=== PATIENT | female | born 1945 | race Hispanic/Latino ===

== ENCOUNTER 2017-07-04 11:21 | Inpatient (IN) | payer BC, MEDICARE ==
[2017-07-04] MEDS ORDERED: Sodium Chloride 0.9% 1,000 ML IV STA ×2 (12:43→15:25)
--- NOTE | 2017-07-04 12:54 | ED PDOC ---
HPI: Abdomen Time Seen by Provider: 07/04/17 12:18 Chief Complaint (Nursing): Abdominal Pain Chief Complaint (Provider): Rectal Bleeding History Per: Patient History/Exam Limitations: no limitations Onset/Duration Of Symptoms: Days (x2) Additional Complaint(s): 71 year old female with a past medical history of anemia and hypertension presents to the emergency department complaining of rectal bleeding since yesterday. Reports defecation with lower abdominal cramping. Also reports feeling weak, dizzy, and nauseous. Denies any fever or vomiting. PMD: To be determined Past Medical History Reviewed: Historical Data, Nursing Documentation, Vital Signs Vital Signs: Last Vital Signs Temp 98.5 F 07/04/17 11:43 Pulse 75 07/04/17 11:43 Resp 18 07/04/17 11:43 BP 144/80 07/04/17 11:43 Pulse Ox 99 07/04/17 13:19 - Medical History PMH: Anemia, HTN - Surgical History Other surgeries: Bilateral knee and right hip replacement, gastric bypass surgery - Family History Family History: States: Unknown Family Hx - Social History Current smoker - smoking cessation education provided: No Alcohol: Social Drugs: Denies - Immunization History Hx Influenza Vaccination: No - Home Medications Home Medications: Ambulatory Orders Medication Instructions Recorded Azithromycin [Zithromax Z-Jay] 250 mg PO DAILY #5 tab 07/22/14 - Allergies Allergies/Adverse Reactions: Allergies Allergy/AdvReac Type Severity Reaction Status Date / Time Unobtainable Allergy Verified 07/04/17 12:42 Review of Systems ROS Statement: Except As Marked, All Systems Reviewed And Found Negative Constitutional: Negative for: Fever Gastrointestinal: Positive for: Nausea, Abdominal Pain (low cramping), Rectal Pain (Bleeding). Negative for: Vomiting Neurological: Positive for: Weakness, Dizziness Physical Exam - Reviewed Nursing Documentation Reviewed: Yes Vital Signs Reviewed: Yes - Physical Exam Appears: Positive for: No Acute Distress Head Exam: Positive for: ATRAUMATIC, NORMAL INSPECTION, NORMOCEPHALIC Skin: Positive for: Normal Color, Warm, Dry Eye Exam: Positive for: EOMI, PERRL, Other (pale conjunctiva) ENT: Positive for: Normal ENT Inspection Neck: Positive for: Normal, Painless ROM Cardiovascular/Chest: Positive for: Regular Rate, Rhythm. Negative for: Murmur Respiratory: Positive for: Normal Breath Sounds. Negative for: Accessory Muscle Use, Wheezing, Respiratory Distress Gastrointestinal/Abdominal: Positive for: Normal Exam, Bowel Sounds, Soft. Negative for: Tenderness, Distended Back: Positive for: Normal Inspection Extremity: Positive for: Normal ROM. Negative for: Tenderness, Swelling Neurologic/Psych: Positive for: Alert, Oriented (x3). Negative for: Motor/ Sensory Deficits - Laboratory Results Result Diagrams: 07/04/17 13:15 07/04/17 13:15 - ECG O2 Sat by Pulse Oximetry: 99 (RA) Pulse Ox Interpretation: Normal Medical Decision Making Medical Decision Making: Time: 12:42 Initial Plan: --Type and Screen --CT of the Abdomen and Pelvis without PO or IV Contrast --CMP --ED Urine Dipstick --CBC with Differential --Sodium Chloride 0.9% 1000 mL IV 150 mls/hr --Occult Blood, Stool, ER Scribe Attestation: Documented by Indira House, acting as a scribe for Hero Alejandre MD Provider Scribe Attestation: All medical record entries made by the Scribe were at my direction and personally dictated by me. I have reviewed the chart and agree that the record accurately reflects my personal performance of the history, physical exam, medical decision making, and the department course for this patient. I have also personally directed, reviewed, and agree with the discharge instructions and disposition Disposition - Clinical Impression Clinical Impression: GI bleed - Patient ED Disposition Is Patient to be Admitted: Yes - Disposition Disposition Time: 14:54 Condition: FAIR Forms: [employer] (Persian) - Pt Status Changed To: Hospital Disposition Of: Observation - POA Present On Arrival: None
[2017-07-04 13:19] LABS: BASO % 0.4 % (0.0-2.0); EOS # 0.1 K/uL (0.0-0.7); HEMOGLOBIN 12.6 g/dL (12.0-16.0); LYMPH # 1.3 K/uL (1.0-4.3); LYMPH % 17.3 % (20.0-40.0); MEAN CELL VOLUME 101.6 fl (81.0-99.0); MEAN CORPUSCULAR HEMOGLOBIN 33.8 pg (27.0-31.0); MEAN CORPUSCULAR HGB CONC 33.2 g/dL (33.0-37.0); MEAN PLATELET VOLUME 8.6 fl (7.2-11.7); MONO # 0.4 K/uL (0.0-0.8); MONO % 5.5 % (0.0-10.0); NEUT # 5.6 K/uL (1.8-7.0); NEUT % 75.8 % (50.0-75.0); NRBC % 0.2 % (0.0-0.0); RBC 3.74 Mil/uL (3.80-5.20); RED CELL DISTRIBUTION WIDTH 14.4 % (11.5-14.5); WHITE BLOOD COUNT 7.4 K/uL (4.8-10.8)
[2017-07-04 13:50] LABS: ALB/GLOB RATIO 1.3 (1.0-2.1); ALBUMIN 3.8 g/dL (3.5-5.0); ALT/SGPT 18 U/L (9-52); AST/SGOT 43 U/L (14-36); BLOOD UREA NITROGEN 53 mg/dl (7-17); CALCIUM 9.3 mg/dL (8.4-10.2); GFR AFRICAN-AMERICAN > 60; GFR NON-AFRICAN AMERICAN > 60
--- NOTE | 2017-07-04 16:34 | CT ---
PROCEDURE: CT scan abdomen and pelvis dated 07/04/2017 HISTORY: Rectal bleeding. COMPARISON: No prior study available comparison. TECHNIQUE: Contiguous helical/transaxial images of the abdomen and pelvis. Oral contrast was administered. No IV contrast given. Coronal and Sagittal reformats generated. Radiation dose: Total exam DLP = This CT exam was performed using one or more of the following dose reduction techniques: Automated exposure control, adjustment of the mA and/or kV according to patient size, and/or use of iterative reconstruction technique. FINDINGS: LOWER THORAX: There appears to be some minor atelectasis or scarring in the middle lobe and lingular regions. . Lung edwards are otherwise clear. No evidence of effusion or basilar pneumothorax There is a moderate size hiatal hernia with wall thickening of the distal esophagus that is likely due to protrusion of gastric mucosa. Esophagitis or other intrinsic/invasive wall lesion not excluded. LIVER: The liver is upper limits of normal/ borderline enlarged measuring just over 18 cm in CC dimension. No obvious hepatic mass collection or calcification seen on this noncontrast study. GALLBLADDER AND BILE DUCTS: Gallbladder is physiologically distended. . Layering calculi seen within the dependent portion of the gallbladder. PANCREAS: The unenhanced pancreas appears atrophic and fatty replaced. . No obvious pancreatic masses or collections. SPLEEN: Spleen exhibits relatively normal size. There is a faint ill-defined area low attenuation superior anterior margin of the splenic parenchyma measuring 5.4 mm of uncertain etiology. This could represent a tiny hemangioma. Followup interval could be performed to assess stability. ADRENALS: There are no adrenal lesions. KIDNEYS AND URETERS: Kidneys demonstrate relatively symmetric size. No evidence of nephrolithiasis or hydronephrosis. There is a small partially exophytic 7.2 mm hyperdense focus exhibiting Hounsfield units in the high 50s) arising from the medial aspect upper/ midpole left kidney that could represent a hyperdense cyst however solid lesion not excluded. Consider follow-up ultrasound for further evaluation as initial on workup BLADDER: Urinary bladder is incompletely seen due to significant streak and beam hardening artifact arising from right total hip replacement. Urinary bladder does appear distended so far as can be determined. REPRODUCTIVE: Streak and beam hardening artifact arising from right total hip replacement also obscures a good portion of the remaining pelvis including the reproductive structures. Uterus is not seen with any certainty. Follow-up pelvic ultrasound is recommended to identified the uterus an adnexal structures APPENDIX: What appears to represent a normal appendix of best seen on coronal image number [id number].. BOWEL: Evaluation of the bowel is limited due to the lack of oral contrast material. Postoperative changes of the stomach ; clinical correlation with surgical history recommended. . Visualized loops of small bowel exhibit relatively normal contour and caliber however there fecalization small bowel content. . Additionally, relatively large amount of stool seen throughout the ascending and proximal transverse colon. Large amount of air is present within the rectum. There are multiple calcifications seen adjacent to the right posterolateral wall of the rectus sigmoid with adjacent right-sided ill-defined soft tissue density also associated with at least 1 calcification. Soft tissue density is of uncertain etiology however could represent unopacified loops of bowel and uterus as the uterus is not clearly identified on this exam. The possibility of a lesion involving the wall of the rectosigmoid colon extending laterally cannot be excluded clinical correlation recommended. Endoscopy followup recommended. Pelvic ultrasound is also recommended to identified the uterus and adnexal structures PERITONEUM: No obvious free or loculated fluid collections. No free intraperitoneal air. There is a small fat containing umbilical hernia. LYMPH NODES: No significant lymphadenopathy so far as can be seen. VASCULATURE: No evidence of abdominal aortic aneurysm. Partially calcified atherosclerotic plaque seen along the abdominal aorta and iliac arteries. BONES: Multilevel degenerative spondylosis of the lower thoracic and lumbar spine. OTHER FINDINGS: None. IMPRESSION: Cholelithiasis. Findings consistent with constipation with fecalized content in the small bowel. There are multiple calcifications seen adjacent to the right posterolateral wall of the rectus sigmoid with adjacent right-sided ill-defined soft tissue density also associated with at least 1 calcification. Soft tissue density is of uncertain etiology however could represent unopacified loops of bowel and uterus as the uterus is not clearly identified on this exam. The possibility of a lesion involving the wall of the rectosigmoid colon extending laterally cannot be excluded clinical correlation recommended. Endoscopy followup recommended. Pelvic ultrasound is also recommended to identified the uterus and adnexal structures Note these findings discussed with Dr. Lebron at approximately 3:25 p.m. with written down and read back verification.
--- NOTE | 2017-07-04 18:09 | CP.PCM.HP ---
<Lisa Francois - Last Filed: 07/04/17 19:37> History of Present Illness - History of Present Illness History of Present Illness: 71 YO F/ w/ PMH history HTN and anemia of an unknown etiology presents to the ED after she had 4 eppisodes of Black stool, with bright red blood in her toilet. At that time she started feeling weak, SOB, and light headed. Patients episodes of bloody stools occured between the hours of 5:30 am and 8:30 am. They were normal in consistency. States she usually has normal soft bowl movements daily, and has never had any problems. Back in 2016 patient was admitted at [place] with a Hb of 5.7 and received Iron transfusions but no blood transfusions. She has been taking supplemental iron on a daily basis over the last 6 months. Patient had a colonoscopy and endoscopy in september 2015 and there was nothing abnormal found according to her. - Patient admits to not drinking very much water, usually has 3 cups of coffee. Denies any abdominal pain or any history of GERD. No unintentional weight loss, fever, chills, nausea or vomiting. PMD: Dr. Hodgson PMH: HTN, Anemia: etiology unknown, Lactose intolerance PSH: Gastric Bypass (Fall 2002), B/L Knee replacement ( September 2010), Right hip replacement Dec 2014, Right hip revision October 2015 FH: Father of colon cancer at 63 Medications: Enalopril, Turmeric, chromium, Aleve Allergy: IV contrast(CT Scan) SH: Alcohol 3 times per week (1- 2 glasses) , No smoking or illicit drug use Present on Admission - Present on Admission Any Indicators Present on Admission: No Review of Systems - Review of Systems All systems: reviewed and no additional remarkable complaints except Past Patient History - Past Social History Alcohol: Social Drugs: Denies - CARDIAC Hx Hypertension: Yes - HEMATOLOGICAL/ONCOLOGICAL Hx Anemia: Yes - PSYCHIATRIC Hx Substance Use: No - SURGICAL HISTORY Other/Comment: bilateral knee replacementright hip replacement - ANESTHESIA Hx Anesthesia: Yes Hx Anesthesia Reactions: No Hx Malignant Hyperthermia: No Meds Allergies/Adverse Reactions: Allergies Allergy/AdvReac Type Severity Reaction Status Date / Time IV contrast Allergy RASH Uncoded 07/04/17 15:29 Physical Exam - Constitutional Appears: No Acute Distress - Head Exam Head Exam: NORMAL INSPECTION - ENT Exam ENT Exam: Mucous Membranes Moist - Neck Exam Neck exam: Positive for: Normal Inspection - Respiratory Exam Respiratory Exam: Clear to Auscultation Bilateral, NORMAL BREATHING PATTERN. absent: Rhonchi, Wheezes - Cardiovascular Exam Cardiovascular Exam: REGULAR RHYTHM, +S1, +S2 - GI/Abdominal Exam GI & Abdominal Exam: Normal Bowel Sounds, Soft. absent: Tenderness - Rectal Exam Rectal Exam: Black Stool, Bloody Stool Additional comments: FOBT positive - Extremities Exam Extremities exam: Negative for: calf tenderness - Neurological Exam Neurological exam: Alert, CN II-XII Intact, Oriented x3 - Skin Skin Exam: Normal Color, Warm Results - Vital Signs Recent Vital Signs: Last Vital Signs Temp 98.5 F 07/04/17 11:43 Pulse 75 07/04/17 11:43 Resp 18 07/04/17 11:43 BP 144/80 07/04/17 11:43 Pulse Ox 99 07/04/17 14:54 - Labs Result Diagrams: 07/04/17 13:15 07/04/17 16:25 Labs: Laboratory Results - last 24 hr 07/04/17 07/04/17 07/04/17 13:15 13:15 16:25 WBC 7.4 RBC 3.74 L Hgb 12.6 Hct 38.0 MCV 101.6 H MCH 33.8 H MCHC 33.2 RDW 14.4 Plt Count 174 MPV 8.6 Neut % (Auto) 75.8 H Lymph % (Auto) 17.3 L Gray % (Auto) 5.5 Eos % (Auto) 1.0 Baso % (Auto) 0.4 Neut # (Auto) 5.6 Lymph # (Auto) 1.3 Gray # (Auto) 0.4 Eos # (Auto) 0.1 Baso # (Auto) 0.0 Sodium 140 Potassium 6.0 H 5.1 H Chloride 106 Carbon Dioxide 22 Anion Gap 18 BUN 53 H Creatinine 0.9 Est GFR ( Amer) > 60 Est GFR (Non-Af Amer) > 60 Random Glucose 97 Calcium 9.3 Total Bilirubin 1.1 AST 43 H ALT 18 Alkaline Phosphatase 51 Total Protein 6.6 Albumin 3.8 Globulin 2.8 Albumin/Globulin Ratio 1.3 Stool Occult Blood 07/04/17 16:45 WBC RBC Hgb Hct MCV MCH MCHC RDW Plt Count MPV Neut % (Auto) Lymph % (Auto) Gray % (Auto) Eos % (Auto) Baso % (Auto) Neut # (Auto) Lymph # (Auto) Gray # (Auto) Eos # (Auto) Baso # (Auto) Sodium Potassium Chloride Carbon Dioxide Anion Gap BUN Creatinine Est GFR ( Amer) Est GFR (Non-Af Amer) Random Glucose Calcium Total Bilirubin AST ALT Alkaline Phosphatase Total Protein Albumin Globulin Albumin/Globulin Ratio Stool Occult Blood Positive H Assessment & Plan - Assessment and Plan (Free Text) Assessment: 71 YO F w/ 4 episodes of bloody bowl movement is admitted for lightheadedness, weakness. 1) Blood in stools - NPO - Stool occult blood positive - Hemodynamically stable: Hb: 12.6 - Type and screen - GI and surgery consulted - F/U with CBC, CMP, PT/INR, Type and screen - CT abdomen showed: Cholelithiasis. Constipation noted, fecalized content in the small bowl. Multiple calcifications seen adjacent to right poserolateral wall of the rectus sigmoid with adjacent right sided ill defined soft tissue associated with calcification. Possibly lesion involving wall of rectosigmoid colon extending laterally cannot be excluded. Recommending Endoscopy and pelvic ultrasound - Monitor vitals 2) Lightheadedness - possibly secondary to dehydration - lightheadedness improved after bolus of IV fluids - BUN/Creatinine : 53/.9 3) Hyperkalemia - K+ of 5.1 - Hold enalapril home medication as of now. - Continue to monitor 4)DVT prophylaxis - Hold anticoagulation, because of bleeding - SCD <Alena Rome - Last Filed: 07/05/17 08:52> Results - Vital Signs Recent Vital Signs: Last Vital Signs Temp 98.6 F 07/05/17 07:24 Pulse 60 07/05/17 07:24 Resp 17 07/05/17 07:24 BP 142/96 H 07/05/17 07:24 Pulse Ox 99 07/05/17 07:24 - Labs Result Diagrams: 07/05/17 05:50 07/04/17 20:12 Labs: Laboratory Results - last 24 hr 07/04/17 07/04/17 07/04/17 13:15 13:15 16:25 WBC 7.4 RBC 3.74 L Hgb 12.6 Hct 38.0 MCV 101.6 H MCH 33.8 H MCHC 33.2 RDW 14.4 Plt Count 174 MPV 8.6 Neut % (Auto) 75.8 H Lymph % (Auto) 17.3 L Gray % (Auto) 5.5 Eos % (Auto) 1.0 Baso % (Auto) 0.4 Neut # (Auto) 5.6 Lymph # (Auto) 1.3 Gray # (Auto) 0.4 Eos # (Auto) 0.1 Baso # (Auto) 0.0 PT INR APTT Sodium 140 Potassium 6.0 H 5.1 H Chloride 106 Carbon Dioxide 22 Anion Gap 18 BUN 53 H Creatinine 0.9 Est GFR ( Amer) > 60 Est GFR (Non-Af Amer) > 60 Random Glucose 97 Calcium 9.3 Total Bilirubin 1.1 AST 43 H ALT 18 Alkaline Phosphatase 51 Total Protein 6.6 Albumin 3.8 Globulin 2.8 Albumin/Globulin Ratio 1.3 Stool Occult Blood Blood Type Blood Type Confirm Antibody Screen BBK History Checked 07/04/17 07/04/17 07/04/17 16:45 20:00 20:12 WBC 6.3 RBC 3.11 L Hgb 10.3 L D Hct 31.2 L MCV 100.4 H MCH 33.2 H MCHC 33.1 RDW 13.5 Plt Count 159 MPV 8.4 Neut % (Auto) 53.9 Lymph % (Auto) 34.0 Gray % (Auto) 8.9 Eos % (Auto) 2.6 Baso % (Auto) 0.6 Neut # (Auto) 3.4 Lymph # (Auto) 2.1 Gray # (Auto) 0.6 Eos # (Auto) 0.2 Baso # (Auto) 0.0 PT INR APTT Sodium Potassium Chloride Carbon Dioxide Anion Gap BUN Creatinine Est GFR ( Amer) Est GFR (Non-Af Amer) Random Glucose Calcium Total Bilirubin AST ALT Alkaline Phosphatase Total Protein Albumin Globulin Albumin/Globulin Ratio Stool Occult Blood Positive H Blood Type A POSITIVE Blood Type Confirm Antibody Screen Negative BBK History Checked No verified bt 07/04/17 07/04/17 07/04/17 20:12 20:15 20:20 WBC RBC Hgb Hct MCV MCH MCHC RDW Plt Count MPV Neut % (Auto) Lymph % (Auto) Gray % (Auto) Eos % (Auto) Baso % (Auto) Neut # (Auto) Lymph # (Auto) Gray # (Auto) Eos # (Auto) Baso # (Auto) PT 11.0 INR 1.0 APTT 28.2 Sodium 142 Potassium 4.7 Chloride 107 Carbon Dioxide 29 Anion Gap 11 BUN 42 H Creatinine 0.9 Est GFR ( Amer) > 60 Est GFR (Non-Af Amer) > 60 Random Glucose 89 Calcium 8.9 Total Bilirubin 0.5 AST 26 ALT 28 Alkaline Phosphatase 49 Total Protein 5.4 L Albumin 3.1 L Globulin 2.3 Albumin/Globulin Ratio 1.3 Stool Occult Blood Blood Type Blood Type Confirm A POSITIVE Antibody Screen BBK History Checked 07/05/17 05:50 WBC 4.9 RBC 3.27 L Hgb 11.0 L Hct 33.3 L MCV 101.8 H MCH 33.6 H MCHC 33.0 RDW 13.8 Plt Count 164 MPV Neut % (Auto) Lymph % (Auto) Gray % (Auto) Eos % (Auto) Baso % (Auto) Neut # (Auto) Lymph # (Auto) Gray # (Auto) Eos # (Auto) Baso # (Auto) PT INR APTT Sodium Potassium Chloride Carbon Dioxide Anion Gap BUN Creatinine Est GFR ( Amer) Est GFR (Non-Af Amer) Random Glucose Calcium Total Bilirubin AST ALT Alkaline Phosphatase Total Protein Albumin Globulin Albumin/Globulin Ratio Stool Occult Blood Blood Type Blood Type Confirm Antibody Screen BBK History Checked Attending/Attestation - Attestation I have personally seen and examined this patient.: Yes I have fully participated in the care of the patient.: Yes I have reviewed all pertinent clinical information: Yes Notes (Text): 07/05/17 08:50 ATTENDING NOTE ATTESTATION CHART REVIEWED. CASE DISCUSSED AT LENGTH WITH RESIDENT. ADMITTED FOR FURTHER EVALUATION AND TREATMENT. DARK STOOL - PATIENT IS ON IRON. STOOL FOR OCCULT BLOOD POSITIVE FOR BLOOD. ELEVALTED BUN/CR RATION MAY INDICATE GI BLEED RATHER THAN DEHYDRATION OR A COMPONENT OF BOTH. VITAL SIGNS STABLE UPON ADMISSION. AGREE WITH PLAN,\.
--- NOTE | 2017-07-04 18:57 | CP.PCM.CON ---
<Chris Muller - Last Filed: 07/05/17 08:14> History of Present Illness - History of Present Illness History of Present Illness: General Surgery Consult Note for Dr. Fountain Reason for consult: blood in stool 71 F with PMH that includes HTN, Palma-en-y gastric bypass and anemia presents to [facility] for complaint of blood per rectum. Patient states that she had 4 episodes of black tarry stool with bright red blood in her toilet, all very loose. She states that they all occurred before 9 am. At that time, she reports weakness and dizziness/lightheadedness. Patient denies any pain. She reports that she normally has regular bowel movements daily. Denies ever having blood or dark stool. Patient had admission last year at [place] for anemia. She has been taking iron supplement. She had a normal EGD/colonoscopy in September 2015. Patient has no complaints at this time and is feeling better than earlier. Denies fever/chills, chest pain, SOb, palpitations, abdominal pain, nausea/vomiting, urinary symptoms, incontinence, syncope, vertigo. PMD: Dr. Hodgson PMH: HTN, Anemia, Lactose intolerance Meds: As per EMR Allergy: IV contrast PSH: Pamla-en-y Gastric Bypass (2002), B/L Knee replacement (2010), Right hip replacement (2014), Right hip revision (2015) FH: multiple relatives with colon cancer on paternal side Social: Admits to EtOH three times per week (1-2 glasses), Denies tobacco/ illicit drug use Review of Systems - Review of Systems All systems: reviewed and no additional remarkable complaints except (as per HPI ) Past Patient History - Past Social History Alcohol: Social Drugs: Denies - CARDIAC Hx Hypertension: Yes - HEMATOLOGICAL/ONCOLOGICAL Hx Anemia: Yes - PSYCHIATRIC Hx Substance Use: No - SURGICAL HISTORY Other/Comment: bilateral knee replacementright hip replacement - ANESTHESIA Hx Anesthesia: Yes Hx Anesthesia Reactions: No Hx Malignant Hyperthermia: No Meds Allergies/Adverse Reactions: Allergies Allergy/AdvReac Type Severity Reaction Status Date / Time IV contrast Allergy RASH Uncoded 07/04/17 15:29 - Medications Medications: Current Medications Sodium Chloride (Sodium Chloride 0.9%) 1,000 mls @ 150 mls/hr IV .Q6H40M STA Stop: 07/04/17 19:22 Last Admin: 07/04/17 14:20 Dose: 150 mls/hr Physical Exam - Constitutional Appears: No Acute Distress - Head Exam Head Exam: ATRAUMATIC, NORMOCEPHALIC - Eye Exam Eye Exam: EOMI, Normal appearance - ENT Exam ENT Exam: Mucous Membranes Moist - Respiratory Exam Respiratory Exam: NORMAL BREATHING PATTERN - Cardiovascular Exam Cardiovascular Exam: REGULAR RHYTHM - GI/Abdominal Exam GI & Abdominal Exam: Normal Bowel Sounds, Soft. absent: Distended, Firm, Guarding, Hernia, Rebound, Rigid, Tenderness - Rectal Exam Additional comments: normal sphincter tone, smooths emerson, no structural irregularities noted, Dark stool noted - Extremities Exam Extremities exam: Positive for: normal capillary refill, pedal edema (bilateral) , pedal pulses present. Negative for: calf tenderness - Back Exam Back exam: absent: CVA tenderness (L), CVA tenderness (R) - Neurological Exam Neurological exam: Alert, CN II-XII Intact, Oriented x3 - Psychiatric Exam Psychiatric exam: Normal Affect, Normal Mood - Skin Skin Exam: Dry, Intact, Normal Color, Warm Results - Vital Signs Recent Vital Signs: Last Vital Signs Temp 98.5 F 07/04/17 11:43 Pulse 75 07/04/17 11:43 Resp 18 07/04/17 11:43 BP 144/80 07/04/17 11:43 Pulse Ox 99 07/04/17 14:54 - Labs Result Diagrams: 07/04/17 20:12 07/04/17 20:12 Labs: Laboratory Results - last 24 hr 07/04/17 07/04/17 07/04/17 13:15 13:15 16:25 WBC 7.4 RBC 3.74 L Hgb 12.6 Hct 38.0 MCV 101.6 H MCH 33.8 H MCHC 33.2 RDW 14.4 Plt Count 174 MPV 8.6 Neut % (Auto) 75.8 H Lymph % (Auto) 17.3 L [place] % (Auto) 5.5 Eos % (Auto) 1.0 Baso % (Auto) 0.4 Neut # (Auto) 5.6 Lymph # (Auto) 1.3 Worth # (Auto) 0.4 Eos # (Auto) 0.1 Baso # (Auto) 0.0 Sodium 140 Potassium 6.0 H 5.1 H Chloride 106 Carbon Dioxide 22 Anion Gap 18 BUN 53 H Creatinine 0.9 Est GFR ( Amer) > 60 Est GFR (Non-Af Amer) > 60 Random Glucose 97 Calcium 9.3 Total Bilirubin 1.1 AST 43 H ALT 18 Alkaline Phosphatase 51 Total Protein 6.6 Albumin 3.8 Globulin 2.8 Albumin/Globulin Ratio 1.3 Stool Occult Blood 07/04/17 16:45 WBC RBC Hgb Hct MCV MCH MCHC RDW Plt Count MPV Neut % (Auto) Lymph % (Auto) [place] % (Auto) Eos % (Auto) Baso % (Auto) Neut # (Auto) Lymph # (Auto) [place] # (Auto) Eos # (Auto) Baso # (Auto) Sodium Potassium Chloride Carbon Dioxide Anion Gap BUN Creatinine Est GFR ( Amer) Est GFR (Non-Af Amer) Random Glucose Calcium Total Bilirubin AST ALT Alkaline Phosphatase Total Protein Albumin Globulin Albumin/Globulin Ratio Stool Occult Blood Positive H Assessment & Plan - Assessment and Plan (Free Text) Plan: 71 F with GI bleed -Monitor Hgb, Transfuse as needed -IV fluids -Recommend GI consult -Medical management as per primary -Further recommendations as per Dr. Александр Muller PGY1 <Melvin Fountain - Last Filed: 07/05/17 10:45> Meds - Medications Medications: Current Medications Enalapril Maleate (Vasotec) 5 mg PO DAILY [facility] Last Admin: 07/05/17 08:47 Dose: 5 mg Hydromorphone HCl (Dilaudid) 0.5 mg IVP Q3H PRN PRN Reason: Pain, severe (8-10) Dextrose/Sodium Chloride (Dextrose 5%/0.45% Ns 1000 Ml) 1,000 mls @ 125 mls/hr IV .Q8H [facility] Stop: 07/06/17 00:01 Last Admin: 07/05/17 08:58 Dose: 125 mls/hr Pantoprazole Sodium (Protonix Inj) 40 mg IVP BID [facility] Last Admin: 07/05/17 08:47 Dose: 40 mg Results - Vital Signs Recent Vital Signs: Last Vital Signs Temp 98.6 F 07/05/17 07:24 Pulse 60 07/05/17 07:24 Resp 17 07/05/17 07:24 BP 142/96 H 07/05/17 07:24 Pulse Ox 99 07/05/17 07:24 - Labs Result Diagrams: 07/05/17 05:50 07/04/17 20:12 Labs: Laboratory Results - last 24 hr 07/04/17 07/04/17 07/04/17 13:15 13:15 16:25 WBC 7.4 RBC 3.74 L Hgb 12.6 Hct 38.0 MCV 101.6 H MCH 33.8 H MCHC 33.2 RDW 14.4 Plt Count 174 MPV 8.6 Neut % (Auto) 75.8 H Lymph % (Auto) 17.3 L [place] % (Auto) 5.5 Eos % (Auto) 1.0 Baso % (Auto) 0.4 Neut # (Auto) 5.6 Lymph # (Auto) 1.3 [place] # (Auto) 0.4 Eos # (Auto) 0.1 Baso # (Auto) 0.0 PT INR APTT Sodium 140 Potassium 6.0 H 5.1 H Chloride 106 Carbon Dioxide 22 Anion Gap 18 BUN 53 H Creatinine 0.9 Est GFR ( Amer) > 60 Est GFR (Non-Af Amer) > 60 Random Glucose 97 Calcium 9.3 Total Bilirubin 1.1 AST 43 H ALT 18 Alkaline Phosphatase 51 Total Protein 6.6 Albumin 3.8 Globulin 2.8 Albumin/Globulin Ratio 1.3 Stool Occult Blood Blood Type Blood Type Confirm Antibody Screen BBK History Checked 07/04/17 07/04/17 07/04/17 16:45 20:00 20:12 WBC 6.3 RBC 3.11 L Hgb 10.3 L D Hct 31.2 L MCV 100.4 H MCH 33.2 H MCHC 33.1 RDW 13.5 Plt Count 159 MPV 8.4 Neut % (Auto) 53.9 Lymph % (Auto) 34.0 Worth % (Auto) 8.9 Eos % (Auto) 2.6 Baso % (Auto) 0.6 Neut # (Auto) 3.4 Lymph # (Auto) 2.1 Worth # (Auto) 0.6 Eos # (Auto) 0.2 Baso # (Auto) 0.0 PT INR APTT Sodium Potassium Chloride Carbon Dioxide Anion Gap BUN Creatinine Est GFR ( Amer) Est GFR (Non-Af Amer) Random Glucose Calcium Total Bilirubin AST ALT Alkaline Phosphatase Total Protein Albumin Globulin Albumin/Globulin Ratio Stool Occult Blood Positive H Blood Type A POSITIVE Blood Type Confirm Antibody Screen Negative BBK History Checked No verified bt 07/04/17 07/04/17 07/04/17 20:12 20:15 20:20 WBC RBC Hgb Hct MCV MCH MCHC RDW Plt Count MPV Neut % (Auto) Lymph % (Auto) [place] % (Auto) Eos % (Auto) Baso % (Auto) Neut # (Auto) Lymph # (Auto) [place] # (Auto) Eos # (Auto) Baso # (Auto) PT 11.0 INR 1.0 APTT 28.2 Sodium 142 Potassium 4.7 Chloride 107 Carbon Dioxide 29 Anion Gap 11 BUN 42 H Creatinine 0.9 Est GFR ( Amer) > 60 Est GFR (Non-Af Amer) > 60 Random Glucose 89 Calcium 8.9 Total Bilirubin 0.5 AST 26 ALT 28 Alkaline Phosphatase 49 Total Protein 5.4 L Albumin 3.1 L Globulin 2.3 Albumin/Globulin Ratio 1.3 Stool Occult Blood Blood Type Blood Type Confirm A POSITIVE Antibody Screen BBK History Checked 07/05/17 05:50 WBC 4.9 RBC 3.27 L Hgb 11.0 L Hct 33.3 L MCV 101.8 H MCH 33.6 H MCHC 33.0 RDW 13.8 Plt Count 164 MPV Neut % (Auto) Lymph % (Auto) [place] % (Auto) Eos % (Auto) Baso % (Auto) Neut # (Auto) Lymph # (Auto) [place] # (Auto) Eos # (Auto) Baso # (Auto) PT INR APTT Sodium Potassium Chloride Carbon Dioxide Anion Gap BUN Creatinine Est GFR ( Amer) Est GFR (Non-Af Amer) Random Glucose Calcium Total Bilirubin AST ALT Alkaline Phosphatase Total Protein Albumin Globulin Albumin/Globulin Ratio Stool Occult Blood Blood Type Blood Type Confirm Antibody Screen BBK History Checked Assessment & Plan - Assessment and Plan (Free Text) Assessment: LGIB, unclear etiology. will need colonoscopy to determine where she is bleeding from, await GI input
[2017-07-04 20:24] LABS: BASO % 0.6 % (0.0-2.0); EOS # 0.2 K/uL (0.0-0.7); EOS % 2.6 % (0.0-4.0); HEMOGLOBIN 10.3 g/dL (12.0-16.0); LYMPH # 2.1 K/uL (1.0-4.3); MEAN CELL VOLUME 100.4 fl (81.0-99.0); MEAN CORPUSCULAR HEMOGLOBIN 33.2 pg (27.0-31.0); MEAN CORPUSCULAR HGB CONC 33.1 g/dL (33.0-37.0); MEAN PLATELET VOLUME 8.4 fl (7.2-11.7); MONO # 0.6 K/uL (0.0-0.8); MONO % 8.9 % (0.0-10.0); NEUT # 3.4 K/uL (1.8-7.0); NEUT % 53.9 % (50.0-75.0); NRBC % 0.1 % (0.0-0.0); RBC 3.11 Mil/uL (3.80-5.20); RED CELL DISTRIBUTION WIDTH 13.5 % (11.5-14.5); WHITE BLOOD COUNT 6.3 K/uL (4.8-10.8)
[2017-07-04 20:36] LABS: PARTIAL THROMBOPLASTIN TIME 28.2 Seconds (25.6-37.1)
[2017-07-04 21:33] LABS: ALB/GLOB RATIO 1.3 (1.0-2.1); ALBUMIN 3.1 g/dL (3.5-5.0); ALT/SGPT 28 U/L (9-52); AST/SGOT 26 U/L (14-36); BLOOD UREA NITROGEN 42 mg/dl (7-17); CALCIUM 8.9 mg/dL (8.4-10.2); GFR AFRICAN-AMERICAN > 60; GFR NON-AFRICAN AMERICAN > 60
[2017-07-05] MEDS: Dextrose 5%/0.45% NS 1,000 ML IV SCH ×2 (03:32→08:58)
--- NOTE | 2017-07-05 05:58 | CP.PCM.PN ---
Subjective - Date & Time of Evaluation Date of Evaluation: 07/05/17 Time of Evaluation: 05:40 - Subjective Subjective: General Surgery Note for Dr. Fountain Patient seen and examined at bedside. Patient states two soft BM overnight with small amount of bright red blood, much less than yesterday. Patient denies pain. Denies weakness, dizziness/lightheadedness, fatigue. Patient asking how long she has to stay in hospital because she needs to make arrangements for work. Objective - Vital Signs/Intake and Output Vital Signs (last 24 hours): Temp Pulse Resp BP Pulse Ox 98.5 F 65 16 143/54 L 98 07/04/17 11:43 07/05/17 03:42 07/05/17 03:42 07/05/17 03:42 07/05/17 03:42 - Medications Medications: Current Medications Hydromorphone HCl (Dilaudid) 0.5 mg IVP Q3H PRN PRN Reason: Pain, severe (8-10) Dextrose/Sodium Chloride (Dextrose 5%/0.45% Ns 1000 Ml) 1,000 mls @ 125 mls/hr IV .Q8H [facility] Stop: 07/06/17 00:01 Last Admin: 07/05/17 03:32 Dose: 125 mls/hr - Labs Labs: 07/04/17 20:12 07/04/17 20:12 PT 11.0 Seconds (9.8-13.1) 07/04/17 20:15 INR 1.0 (0.9-1.2) 07/04/17 20:15 APTT 28.2 Seconds (25.6-37.1) 07/04/17 20:15 - Constitutional Appears: No Acute Distress - Head Exam Head Exam: ATRAUMATIC, NORMOCEPHALIC - Eye Exam Eye Exam: Normal appearance - ENT Exam ENT Exam: Mucous Membranes Moist - Respiratory Exam Respiratory Exam: NORMAL BREATHING PATTERN - Cardiovascular Exam Cardiovascular Exam: REGULAR RHYTHM - GI/Abdominal Exam GI & Abdominal Exam: Soft, Normal Bowel Sounds. absent: Distended, Firm, Guarding, Tenderness, Rebound - Extremities Exam Extremities Exam: absent: Calf Tenderness - Neurological Exam Neurological Exam: Alert, Awake, CN II-XII Intact, Oriented x3 - Psychiatric Exam Psychiatric exam: Normal Affect, Normal Mood - Skin Skin Exam: Dry, Intact, Normal Color, Warm Assessment and Plan - Assessment and Plan (Free Text) Plan: 71 F with GI bleed -Monitor Hgb, Transfuse as needed -IV fluids -Recommend GI consult -Medical management as per primary -Further recommendations as per Dr. Александр Muller PGY1
--- NOTE | 2017-07-05 07:06 | CP.PCM.CON ---
<Laura Yates - Last Filed: 07/05/17 13:03> History of Present Illness - History of Present Illness History of Present Illness: GI Fellow PGY4 Consult Note This is a 71 F with Pmhx of HTN, Palma-en-y gastric bypass and anemia presents to ER for complaint of rectal bleeding. Patient states that she had 4 episodes of black stool with bright red blood in her toilet yesterday morning. At that time, she reported some dizziness/lightheadedness. Patient denies any abdominal or rectal pain. She normally has regular bowel movements daily with no prior melena or hematochezia. Patient had admission last year at [facility] for anemia. She has been taking iron supplement. She had a normal EGD 2010 and colonoscopy in 2014 which were negative. Pt has recieved iron infusions in past. Patient has no complaints at this time and is feeling better than earlier. Denies fever/chills, chest pain, SOb, palpitations, abdominal pain, nausea/vomiting, urinary symptoms, incontinence, syncope, vertigo. ROS: A 12pt ROS was negative except as above. PMH: As stated in HPI PSH: Palma-en-y Gastric Bypass (2002), B/L Knee replacement (2010), Right hip replacement (2014), Right hip revision (2015) FH: multiple relatives with colon cancer on paternal side SHx: Admits to EtOH three times per week (1- 2 glasses) , Denies tobacco/ illicit drug use Past Patient History - Past Social History Alcohol: Social Drugs: Denies - CARDIAC Hx Hypertension: Yes - HEMATOLOGICAL/ONCOLOGICAL Hx Anemia: Yes - PSYCHIATRIC Hx Substance Use: No - SURGICAL HISTORY Other/Comment: bilateral knee replacementright hip replacement - ANESTHESIA Hx Anesthesia: Yes Hx Anesthesia Reactions: No Hx Malignant Hyperthermia: No Meds Allergies/Adverse Reactions: Allergies Allergy/AdvReac Type Severity Reaction Status Date / Time IV contrast Allergy RASH Uncoded 07/04/17 15:29 - Medications Medications: Current Medications Hydromorphone HCl (Dilaudid) 0.5 mg IVP Q3H PRN PRN Reason: Pain, severe (8-10) Dextrose/Sodium Chloride (Dextrose 5%/0.45% Ns 1000 Ml) 1,000 mls @ 125 mls/hr IV .Q8H [facility] Stop: 07/06/17 00:01 Last Admin: 07/05/17 03:32 Dose: 125 mls/hr Pantoprazole Sodium (Protonix Inj) 40 mg IVP BID [facility] Physical Exam - Constitutional Appears: Non-toxic, No Acute Distress - Head Exam Head Exam: ATRAUMATIC, NORMAL INSPECTION, NORMOCEPHALIC - Eye Exam Eye Exam: EOMI, Normal appearance, PERRL - ENT Exam ENT Exam: Mucous Membranes Moist - Neck Exam Neck exam: Positive for: Full Rom - Respiratory Exam Respiratory Exam: Clear to Auscultation Bilateral, NORMAL BREATHING PATTERN - Cardiovascular Exam Cardiovascular Exam: REGULAR RHYTHM, RRR - GI/Abdominal Exam GI & Abdominal Exam: Normal Bowel Sounds, Soft. absent: Distended, Organomegaly , Tenderness - Rectal Exam Rectal Exam: Black Stool, Bloody Stool, NORMAL INSPECTION. absent: Hemorrhoids , Fecal Impaction - Extremities Exam Extremities exam: Positive for: full ROM - Neurological Exam Neurological exam: Alert, Oriented x3 - Psychiatric Exam Psychiatric exam: Normal Affect, Normal Mood - Skin Skin Exam: Dry, Intact, Normal Color, Warm Results - Vital Signs Recent Vital Signs: Last Vital Signs Temp 97.9 F 07/05/17 06:54 Pulse 66 07/05/17 06:54 Resp 18 07/05/17 06:54 BP 146/77 07/05/17 06:54 Pulse Ox 100 07/05/17 06:54 - Labs Result Diagrams: 07/05/17 05:50 07/04/17 20:12 Labs: Laboratory Results - last 24 hr 07/04/17 07/04/17 07/04/17 13:15 13:15 16:25 WBC 7.4 RBC 3.74 L Hgb 12.6 Hct 38.0 MCV 101.6 H MCH 33.8 H MCHC 33.2 RDW 14.4 Plt Count 174 MPV 8.6 Neut % (Auto) 75.8 H Lymph % (Auto) 17.3 L [place] % (Auto) 5.5 Eos % (Auto) 1.0 Baso % (Auto) 0.4 Neut # (Auto) 5.6 Lymph # (Auto) 1.3 [place] # (Auto) 0.4 Eos # (Auto) 0.1 Baso # (Auto) 0.0 PT INR APTT Sodium 140 Potassium 6.0 H 5.1 H Chloride 106 Carbon Dioxide 22 Anion Gap 18 BUN 53 H Creatinine 0.9 Est GFR ( Amer) > 60 Est GFR (Non-Af Amer) > 60 Random Glucose 97 Calcium 9.3 Total Bilirubin 1.1 AST 43 H ALT 18 Alkaline Phosphatase 51 Total Protein 6.6 Albumin 3.8 Globulin 2.8 Albumin/Globulin Ratio 1.3 Stool Occult Blood Blood Type Blood Type Confirm Antibody Screen BBK History Checked 07/04/17 07/04/17 07/04/17 16:45 20:00 20:12 WBC 6.3 RBC 3.11 L Hgb 10.3 L D Hct 31.2 L MCV 100.4 H MCH 33.2 H MCHC 33.1 RDW 13.5 Plt Count 159 MPV 8.4 Neut % (Auto) 53.9 Lymph % (Auto) 34.0 [place] % (Auto) 8.9 Eos % (Auto) 2.6 Baso % (Auto) 0.6 Neut # (Auto) 3.4 Lymph # (Auto) 2.1 [place] # (Auto) 0.6 Eos # (Auto) 0.2 Baso # (Auto) 0.0 PT INR APTT Sodium Potassium Chloride Carbon Dioxide Anion Gap BUN Creatinine Est GFR ( Amer) Est GFR (Non-Af Amer) Random Glucose Calcium Total Bilirubin AST ALT Alkaline Phosphatase Total Protein Albumin Globulin Albumin/Globulin Ratio Stool Occult Blood Positive H Blood Type A POSITIVE Blood Type Confirm Antibody Screen Negative BBK History Checked No verified bt 07/04/17 07/04/17 07/04/17 20:12 20:15 20:20 WBC RBC Hgb Hct MCV MCH MCHC RDW Plt Count MPV Neut % (Auto) Lymph % (Auto) [place] % (Auto) Eos % (Auto) Baso % (Auto) Neut # (Auto) Lymph # (Auto) [place] # (Auto) Eos # (Auto) Baso # (Auto) PT 11.0 INR 1.0 APTT 28.2 Sodium 142 Potassium 4.7 Chloride 107 Carbon Dioxide 29 Anion Gap 11 BUN 42 H Creatinine 0.9 Est GFR ( Amer) > 60 Est GFR (Non-Af Amer) > 60 Random Glucose 89 Calcium 8.9 Total Bilirubin 0.5 AST 26 ALT 28 Alkaline Phosphatase 49 Total Protein 5.4 L Albumin 3.1 L Globulin 2.3 Albumin/Globulin Ratio 1.3 Stool Occult Blood Blood Type Blood Type Confirm A POSITIVE Antibody Screen BBK History Checked Assessment & Plan - Assessment and Plan (Free Text) Assessment: This is a 71yF presenting with complaints of rectal bleeding for one day. 1. Rectal bleeding 2. Anemia Plan: -Continue supportive care with gentle IVF hydration -Pt currently hemodynamically stable, H/H stable -Hgb down trended since admission, will monitor closely -Will plan for EGD tomorrow with black stool on exam and hx of NSAID use -IV PPI drip -Clear liquid diet -Npo after midnight for EGD -Will continue to follow closely <Darren Ferraro MD - Last Filed: 07/05/17 17:11> Meds - Medications Medications: Current Medications Enalapril Maleate (Vasotec) 5 mg PO DAILY [facility] Last Admin: 07/05/17 08:47 Dose: 5 mg Hydromorphone HCl (Dilaudid) 0.5 mg IVP Q3H PRN PRN Reason: Pain, severe (8-10) Dextrose/Sodium Chloride (Dextrose 5%/0.45% Ns 1000 Ml) 1,000 mls @ 125 mls/hr IV .Q8H [facility] Stop: 07/06/17 00:01 Last Admin: 07/05/17 08:58 Dose: 125 mls/hr Pantoprazole Sodium 40 mg/ (Sodium Chloride) 100 mls @ 20 mls/hr IVPB Q5H [facility] PRN Reason: 8 MG/HR Last Admin: 07/05/17 14:27 Dose: 20 mls/hr Results - Vital Signs Recent Vital Signs: Last Vital Signs Temp 98.2 F 07/05/17 17:00 Pulse 67 07/05/17 17:00 Resp 20 07/05/17 17:00 BP 120/75 07/05/17 17:00 Pulse Ox 97 07/05/17 17:00 - Labs Result Diagrams: 07/05/17 05:50 07/04/17 20:12 Labs: Laboratory Results - last 24 hr 07/04/17 07/04/17 07/04/17 16:45 20:00 20:12 WBC 6.3 RBC 3.11 L Hgb 10.3 L D Hct 31.2 L MCV 100.4 H MCH 33.2 H MCHC 33.1 RDW 13.5 Plt Count 159 MPV 8.4 Neut % (Auto) 53.9 Lymph % (Auto) 34.0 [place] % (Auto) 8.9 Eos % (Auto) 2.6 Baso % (Auto) 0.6 Neut # (Auto) 3.4 Lymph # (Auto) 2.1 [place] # (Auto) 0.6 Eos # (Auto) 0.2 Baso # (Auto) 0.0 PT INR APTT Sodium Potassium Chloride Carbon Dioxide Anion Gap BUN Creatinine Est GFR ( Amer) Est GFR (Non-Af Amer) Random Glucose Calcium Total Bilirubin AST ALT Alkaline Phosphatase Total Protein Albumin Globulin Albumin/Globulin Ratio Stool Occult Blood Positive H Blood Type A POSITIVE Blood Type Confirm Antibody Screen Negative BBK History Checked No verified bt 07/04/17 07/04/17 07/04/17 20:12 20:15 20:20 WBC RBC Hgb Hct MCV MCH MCHC RDW Plt Count MPV Neut % (Auto) Lymph % (Auto) [place] % (Auto) Eos % (Auto) Baso % (Auto) Neut # (Auto) Lymph # (Auto) [place] # (Auto) Eos # (Auto) Baso # (Auto) PT 11.0 INR 1.0 APTT 28.2 Sodium 142 Potassium 4.7 Chloride 107 Carbon Dioxide 29 Anion Gap 11 BUN 42 H Creatinine 0.9 Est GFR ( Amer) > 60 Est GFR (Non-Af Amer) > 60 Random Glucose 89 Calcium 8.9 Total Bilirubin 0.5 AST 26 ALT 28 Alkaline Phosphatase 49 Total Protein 5.4 L Albumin 3.1 L Globulin 2.3 Albumin/Globulin Ratio 1.3 Stool Occult Blood Blood Type Blood Type Confirm A POSITIVE Antibody Screen BBK History Checked 07/05/17 05:50 WBC 4.9 RBC 3.27 L Hgb 11.0 L Hct 33.3 L MCV 101.8 H MCH 33.6 H MCHC 33.0 RDW 13.8 Plt Count 164 MPV Neut % (Auto) Lymph % (Auto) [place] % (Auto) Eos % (Auto) Baso % (Auto) Neut # (Auto) Lymph # (Auto) [place] # (Auto) Eos # (Auto) Baso # (Auto) PT INR APTT Sodium Potassium Chloride Carbon Dioxide Anion Gap BUN Creatinine Est GFR ( Amer) Est GFR (Non-Af Amer) Random Glucose Calcium Total Bilirubin AST ALT Alkaline Phosphatase Total Protein Albumin Globulin Albumin/Globulin Ratio Stool Occult Blood Blood Type Blood Type Confirm Antibody Screen BBK History Checked Attending/Attestation - Attestation I have personally seen and examined this patient.: Yes I have fully participated in the care of the patient.: Yes I have reviewed all pertinent clinical information: Yes Notes (Text): 07/05/17 17:05 Patient seen in ER. This is a 71 yr old F with PMH of Palma en Y gastric bypass, right hip replacement and revision, B/L knee replacement admitted with symptomatic GI bleeding. She has been on iron supplements since 2016 for unknown cause of anemia. She noticed black stool yesterday and started to get dizzy. She has history of NSAID intake daily for joint pain. She is not on PPI. PE- soft abdomen. NT/no guarding. Rectal exam with maroon blood in vault. Plan: -Continue supportive care with gentle IVF hydration - Two large bore iV - Cross match and transfuse as needed to target Hct 21 -Hgb down trended since admission, will monitor closely -Will plan for EGD tomorrow with black stool on exam and hx of NSAID use -IV PPI drip with 80 mg /hr bolus and 8 mg/hr infusion -Clear liquid diet -Npo after midnight for EGD in am around 7.30 am -Will continue to follow closely - IF EGD negative then will prep for colonoscopy on Thursday - CT scan reviewed- last colonoscopy in 2014 was normal - Discussed with the team 07/05/17 17:10
[2017-07-05 08:19] LABS: MEAN CELL VOLUME 101.8 fl (81.0-99.0); MEAN CORPUSCULAR HEMOGLOBIN 33.6 pg (27.0-31.0); RBC 3.27 Mil/uL (3.80-5.20); RED CELL DISTRIBUTION WIDTH 13.8 % (11.5-14.5); WHITE BLOOD COUNT 4.9 K/uL (4.8-10.8)
--- NOTE | 2017-07-05 08:20 | CP.PCM.PN ---
<Preston Engel - Last Filed: 07/05/17 12:23> Subjective - Date & Time of Evaluation Date of Evaluation: 07/05/17 Time of Evaluation: 07:30 - Subjective Subjective: Pt seen and examined at bedside. Currently asymptomatic, denies any overnight problems or complaints. Denies any current fevers/chills, n/v/d, chest pain, SOB , dyspnea, abdominal pain, hematuria, or rectal bleed. Objective - Vital Signs/Intake and Output Vital Signs (last 24 hours): Temp Pulse Resp BP Pulse Ox 98.6 F 60 17 142/96 H 99 07/05/17 07:24 07/05/17 07:24 07/05/17 07:24 07/05/17 07:24 07/05/17 07:24 - Medications Medications: Current Medications Enalapril Maleate (Vasotec) 5 mg PO DAILY [facility] Hydromorphone HCl (Dilaudid) 0.5 mg IVP Q3H PRN PRN Reason: Pain, severe (8-10) Dextrose/Sodium Chloride (Dextrose 5%/0.45% Ns 1000 Ml) 1,000 mls @ 125 mls/hr IV .Q8H SRIDEVI Stop: 07/06/17 00:01 Last Admin: 07/05/17 03:32 Dose: 125 mls/hr Pantoprazole Sodium (Protonix Inj) 40 mg IVP BID SRIDEVI - Labs Labs: 07/04/17 20:12 07/04/17 20:12 PT 11.0 Seconds (9.8-13.1) 07/04/17 20:15 INR 1.0 (0.9-1.2) 07/04/17 20:15 APTT 28.2 Seconds (25.6-37.1) 07/04/17 20:15 - Additional Findings Additional findings: - Constitutional Appears: No Acute Distress - ENT Exam ENT Exam: Mucous Membranes Moist - Respiratory Exam Respiratory Exam: Clear to Auscultation Bilateral, NORMAL BREATHING PATTERN. absent: Rhonchi, Wheezes - Cardiovascular Exam Cardiovascular Exam: REGULAR RHYTHM, +S1, +S2 - GI/Abdominal Exam GI & Abdominal Exam: Normal Bowel Sounds, Soft. absent: Tenderness - Extremities Exam Extremities exam: Negative for: calf tenderness - Neurological Exam Neurological exam: Alert, CN II-XII Intact, Oriented x3 - Skin Skin Exam: Normal Color, Warm Assessment and Plan - Assessment and Plan (Free Text) Plan: 71 yo F w PMHx of HTN and anemia of unknown etiology is admitted for lightheadedness and weakness following four episodes of darkened bowel movements with bright red blood 1) Blood in stools - CT abdomen showed: Cholelithiasis. Constipation noted, fecalized content in the small bowl. Multiple calcifications seen adjacent to right poserolateral wall of the rectus sigmoid with adjacent right sided ill defined soft tissue associated with calcification. Possibly lesion involving wall of rectosigmoid colon extending laterally cannot be excluded. Recommending Endoscopy and pelvic ultrasound - Stool occult blood positive - Hemodynamically stable - Clear liquid diet today, as per GI - NPO past midnight, as per GI - Protonix 40mg IVPB Q5H, as per GI - Protonix 80mg Loading dose, as per GI - GI Onboard - Surgery Onboard - f/u H/H this evening - f/u Vitals - f/u CBC, BMP tomorrow - f/u EGD tomorrow 2) Lightheadedness - Currently asymptomatic - possibly secondary to dehydration - improved after bolus of IV fluids 3) Hyperkalemia - Resolved 4)DVT prophylaxis - SCDS - HOLD anticoagulation because of bleeding <Alena Rome - Last Filed: 07/06/17 10:16> Objective - Vital Signs/Intake and Output Vital Signs (last 24 hours): Temp Pulse Resp BP Pulse Ox 97 F L 65 12 136/53 L 99 07/06/17 08:25 07/06/17 08:25 07/06/17 08:25 07/06/17 08:25 07/06/17 08:25 Intake and Output: 07/06/17 07/06/17 06:59 18:59 Intake Total 150 Balance 150 - Medications Medications: Current Medications Bisacodyl (Dulcolax) 10 mg PO ONCE ONE Stop: 07/06/17 12:01 Enalapril Maleate (Vasotec) 5 mg PO DAILY [facility] Last Admin: 07/06/17 09:00 Dose: 5 mg Pantoprazole Sodium (Protonix Ec Tab) 40 mg PO DAILY [facility] Last Admin: 07/06/17 09:00 Dose: 40 mg Polyethylene Glycol/Electrolytes (Golytely) 4,000 ml PO ONCE ONE Stop: 07/06/17 13:01 - Labs Labs: 07/06/17 06:05 07/06/17 06:05 PT 11.0 Seconds (9.8-13.1) 07/04/17 20:15 INR 1.0 (0.9-1.2) 07/04/17 20:15 APTT 28.2 Seconds (25.6-37.1) 07/04/17 20:15 Attending/Attestation - Attestation I have personally seen and examined this patient.: Yes I have fully participated in the care of the patient.: Yes I have reviewed all pertinent clinical information, including history, physical exam and plan: Yes Notes (Text): 07/06/17 10:15 ATTENDING NOTE ATTESTATION PATIENT SEEN AND EXAMINED. CASE DISCUSSED WITH RESIDENT. AGREE WITH FINDINGS AND PLAN.
[2017-07-05 13:38] VITALS: BMI 36.6
[2017-07-05] MEDS: Pantoprazole 40 MG in Sodium Chloride 0.9% 100 ML IVPB SCH ×3 (14:27→22:00)
[2017-07-05 21:27] LABS: HEMOGLOBIN 9.6 g/dL (12.0-16.0)
[2017-07-06] MEDS: Pantoprazole 40 MG in Sodium Chloride 0.9% 100 ML IVPB SCH ×3 (04:36→08:52)
[2017-07-06] MEDS ORDERED: Sodium Chloride 0.9% 1,000 ML IV SCH (06:00)
[2017-07-06 06:42] LABS: MEAN CELL VOLUME 99.3 fl (81.0-99.0); MEAN CORPUSCULAR HEMOGLOBIN 34.2 pg (27.0-31.0); MEAN CORPUSCULAR HGB CONC 34.5 g/dL (33.0-37.0); RBC 3.2 Mil/uL (3.80-5.20); WHITE BLOOD COUNT 4.3 K/uL (4.8-10.8)
[2017-07-06 06:54] LABS: BLOOD UREA NITROGEN 22 mg/dl (7-17); CALCIUM 9.3 mg/dL (8.4-10.2); GFR AFRICAN-AMERICAN > 60; GFR NON-AFRICAN AMERICAN > 60
--- NOTE | 2017-07-06 07:34 | CP.PCM.PN ---
<Jeremias Valdes - Last Filed: 07/06/17 14:26> Subjective - Date & Time of Evaluation Date of Evaluation: 07/06/17 Time of Evaluation: 07:00 - Subjective Subjective: Patient seen and examined this morning at bedside. There are no acute events overnight. The patient is sitting in bed comfortably, NAD. The patient noticed drops of blood on the floor last night. The patient denies any current fevers/chills, nausea, vomiting, diarrhea, chest pain, SOB, dyspnea, abdominal pain, hematuria, or rectal bleed. Objective - Vital Signs/Intake and Output Vital Signs (last 24 hours): Temp Pulse Resp BP Pulse Ox 97.6 F 67 19 112/71 98 07/06/17 00:00 07/06/17 00:00 07/06/17 00:00 07/06/17 00:00 07/06/17 00:00 - Medications Medications: Current Medications Enalapril Maleate (Vasotec) 5 mg PO DAILY [facility] Last Admin: 07/05/17 08:47 Dose: 5 mg Hydromorphone HCl (Dilaudid) 0.5 mg IVP Q3H PRN PRN Reason: Pain, severe (8-10) Pantoprazole Sodium 40 mg/ (Sodium Chloride) 100 mls @ 20 mls/hr IVPB Q5H [facility] PRN Reason: 8 MG/HR Last Admin: 07/06/17 06:57 Dose: 20 mls/hr - Labs Labs: 07/06/17 06:05 07/06/17 06:05 PT 11.0 Seconds (9.8-13.1) 07/04/17 20:15 INR 1.0 (0.9-1.2) 07/04/17 20:15 APTT 28.2 Seconds (25.6-37.1) 07/04/17 20:15 - Constitutional Appears: No Acute Distress - Head Exam Head Exam: ATRAUMATIC, NORMAL INSPECTION, NORMOCEPHALIC - Eye Exam Eye Exam: Normal appearance - ENT Exam ENT Exam: Mucous Membranes Moist - Respiratory Exam Respiratory Exam: Clear to Ausculation Bilateral, NORMAL BREATHING PATTERN. absent: Decreased Breath Sounds, Rales, Rhonchi, Wheezes, Respiratory Distress - Cardiovascular Exam Cardiovascular Exam: REGULAR RHYTHM - GI/Abdominal Exam GI & Abdominal Exam: Soft, Normal Bowel Sounds. absent: Distended, Tenderness - Extremities Exam Extremities Exam: absent: Calf Tenderness, Pedal Edema, Tenderness - Neurological Exam Neurological Exam: Alert, Awake, Normal Gait, Oriented x3 - Skin Skin Exam: Dry, Intact, Normal Color, Warm Assessment and Plan - Assessment and Plan (Free Text) Assessment: 71 y/o woman w/ pmh of HTN and anemia presented w/ multiple episodes of bloody bowl movement Plan: Blood in stools - Stool occult blood positive - Hemodynamically stable: Hb: 11.0 - Type and screen: A+, antibody negative - GI consulted, Dr. Ferraro, recommendations appreciated - surgery consulted, Dr. Fountain, recommendations appreciated - CT abdomen showed: Cholelithiasis. Constipation noted, fecalized content in the small bowl. Multiple calcifications seen adjacent to right posterolateral wall of the rectus sigmoid with adjacent right sided ill defined soft tissue associated with calcification. Possibly lesion involving wall of rectosigmoid colon extending laterally cannot be excluded. Recommending Endoscopy and pelvic ultrasound - EGD: non-bleeding esophageal ulcer biopsied, gastritis, normal 3rd part of duodenum, oneida-en-Y gastrojejunostomy w/ gastrojejunal anastomosis characterized by ulceration biopsied - Monitor for acute changes - Colonoscopy tomorrow - bowel prep ordered - liquid diet for now, NPO after midnight for tomorrow Lightheadedness - resolved - possibly secondary to dehydration - lightheadedness improved after bolus of IV fluids - BUN/Creatinine : 22/0.8 Hyperkalemia -resolved - K+ 4.4 - c/w enalapril home medication - Continue to monitor HTN - controlled w/ medication - c/w enalapril 5 mg PO daily DVT prophylaxis - Hold anticoagulation, because of bleeding - SCD <Eduardo Clark - Last Filed: 07/08/17 06:55> Objective - Vital Signs/Intake and Output Vital Signs (last 24 hours): Temp Pulse Resp BP Pulse Ox 97.8 F 60 17 132/53 L 100 07/07/17 10:12 07/07/17 10:12 07/07/17 10:12 07/07/17 10:12 07/07/17 10:12 Intake and Output: 07/07/17 07/07/17 06:59 18:59 Intake Total 50 Balance 50 - Medications Medications: Current Medications Enalapril Maleate (Vasotec) 5 mg PO DAILY [facility] Last Admin: 07/07/17 08:24 Dose: 5 mg Pantoprazole Sodium (Protonix Ec Tab) 40 mg PO DAILY [facility] Last Admin: 07/07/17 08:24 Dose: 40 mg - Labs Labs: 07/07/17 06:00 07/07/17 06:00 PT 11.0 Seconds (9.8-13.1) 07/04/17 20:15 INR 1.0 (0.9-1.2) 07/04/17 20:15 APTT 28.2 Seconds (25.6-37.1) 07/04/17 20:15 Attending/Attestation - Attestation I have personally seen and examined this patient.: Yes I have fully participated in the care of the patient.: Yes I have reviewed all pertinent clinical information, including history, physical exam and plan: Yes
[2017-07-06] MEDS ORDERED: Lactated Ringer's 1,000 ML IV ONE (07:49)
[2017-07-06] MEDS ORDERED: Lidocaine 2% MPF (5 ml) Inj ONE (07:55)
[2017-07-06] MEDS ORDERED: Propofol 10 mg/ml Inj (20 ML) ONE (07:55)
--- NOTE | 2017-07-06 08:39 | CP.PCM.PN ---
Subjective - Date & Time of Evaluation Date of Evaluation: 07/06/17 Time of Evaluation: 08:39 - Subjective Subjective: General Surgery Progress Note - Dr. Fountain Patient seen and examined at bedside this morning. Pt is NPO prior to having a GI scope today. Admits to having a bowel movement earlier this morning but says she did not see what color it was. States she thinks she is still bleeding because she noticed a few spots of dark blood on the floor when she got up to walk around. Denies having any pain. Denies F/C/N/V/CP/SOB. Objective - Vital Signs/Intake and Output Vital Signs (last 24 hours): Temp Pulse Resp BP Pulse Ox 97 F L 65 12 136/53 L 99 07/06/17 08:25 07/06/17 08:25 07/06/17 08:25 07/06/17 08:25 07/06/17 08:25 Intake and Output: 07/06/17 07/06/17 06:59 18:59 Intake Total 150 Balance 150 - Medications Medications: Current Medications Enalapril Maleate (Vasotec) 5 mg PO DAILY [facility] Last Admin: 07/05/17 08:47 Dose: 5 mg Hydromorphone HCl (Dilaudid) 0.5 mg IVP Q3H PRN PRN Reason: Pain, severe (8-10) Pantoprazole Sodium 40 mg/ (Sodium Chloride) 100 mls @ 20 mls/hr IVPB Q5H SRIDEVI PRN Reason: 8 MG/HR Last Admin: 07/06/17 06:57 Dose: 20 mls/hr - Labs Labs: 07/06/17 06:05 07/06/17 06:05 PT 11.0 Seconds (9.8-13.1) 07/04/17 20:15 INR 1.0 (0.9-1.2) 07/04/17 20:15 APTT 28.2 Seconds (25.6-37.1) 07/04/17 20:15 - Constitutional Appears: Well, Non-toxic, No Acute Distress - GI/Abdominal Exam GI & Abdominal Exam: Soft, Normal Bowel Sounds. absent: Tenderness - Neurological Exam Neurological Exam: Alert, Awake, Oriented x3 - Psychiatric Exam Psychiatric exam: Normal Affect, Normal Mood Assessment and Plan - Assessment and Plan (Free Text) Assessment: 71 y/o female with GI bleed -Monitor Hgb, transfuse as needed -continue IV fluids -NPO diet prior to GI scope -f/u results of EGD -Medical management as per primary team -Further recommendations as per Dr. Fountain
[2017-07-06] MEDS: Pantoprazole 40 mg EC Tab PO SCH ×2 (08:53→09:00)
[2017-07-06] MEDS ORDERED: Bisacodyl 5mg EC Tab PO ONE (12:00)
[2017-07-06] MEDS ORDERED: Peg-Electrolyte Oral Soln 4L (Golytely) PO ONE (13:00)
[2017-07-06] MEDS ORDERED: Influenza Vaccine 18yr & older 0.5 ML/45 MCG SYR IM ONE (13:00)
[2017-07-07 06:21] LABS: BASO % 0.8 % (0.0-2.0); EOS # 0.2 K/uL (0.0-0.7); EOS % 5.2 % (0.0-4.0); HEMOGLOBIN 11.4 g/dL (12.0-16.0); LYMPH # 1.2 K/uL (1.0-4.3); LYMPH % 25.3 % (20.0-40.0); MEAN CELL VOLUME 100.4 fl (81.0-99.0); MEAN CORPUSCULAR HEMOGLOBIN 33.8 pg (27.0-31.0); MEAN CORPUSCULAR HGB CONC 33.7 g/dL (33.0-37.0); MEAN PLATELET VOLUME 8.7 fl (7.2-11.7); MONO # 0.5 K/uL (0.0-0.8); MONO % 9.7 % (0.0-10.0); NEUT # 2.8 K/uL (1.8-7.0); NRBC % 0.1 % (0.0-0.0); RBC 3.36 Mil/uL (3.80-5.20); RED CELL DISTRIBUTION WIDTH 13.8 % (11.5-14.5); WHITE BLOOD COUNT 4.8 K/uL (4.8-10.8)
[2017-07-07 06:43] LABS: ALB/GLOB RATIO 1.4 (1.0-2.1); ALBUMIN 3.7 g/dL (3.5-5.0); ALT/SGPT 35 U/L (9-52); AST/SGOT 36 U/L (14-36); BLOOD UREA NITROGEN 18 mg/dl (7-17); CALCIUM 9.3 mg/dL (8.4-10.2); GFR AFRICAN-AMERICAN > 60; GFR NON-AFRICAN AMERICAN 55
--- NOTE | 2017-07-07 06:48 | CP.PCM.PN ---
Subjective - Date & Time of Evaluation Date of Evaluation: 07/07/17 Time of Evaluation: 06:48 - Subjective Subjective: Patient seen and examined this morning at bedside. There are no acute events overnight. The patient is sitting in bed comfortably, NAD. The patient denies any bleeding. The patient denies any current fevers, chills, nausea, vomiting, diarrhea, chest pain, SOB, dyspnea, abdominal pain, hematuria, or rectal bleed. Objective - Vital Signs/Intake and Output Vital Signs (last 24 hours): Temp Pulse Resp BP Pulse Ox 97.7 F 60 18 105/68 96 07/07/17 00:00 07/07/17 00:00 07/07/17 00:00 07/07/17 00:00 07/07/17 00:00 Intake and Output: 07/06/17 07/07/17 18:59 06:59 Intake Total 150 Balance 150 - Medications Medications: Current Medications Enalapril Maleate (Vasotec) 5 mg PO DAILY [facility] Last Admin: 07/06/17 09:00 Dose: 5 mg Pantoprazole Sodium (Protonix Ec Tab) 40 mg PO DAILY [facility] Last Admin: 07/06/17 09:00 Dose: 40 mg - Labs Labs: 07/07/17 06:00 07/07/17 06:00 PT 11.0 Seconds (9.8-13.1) 07/04/17 20:15 INR 1.0 (0.9-1.2) 07/04/17 20:15 APTT 28.2 Seconds (25.6-37.1) 07/04/17 20:15 - Constitutional Appears: No Acute Distress - Head Exam Head Exam: ATRAUMATIC, NORMAL INSPECTION, NORMOCEPHALIC - Eye Exam Eye Exam: Normal appearance - ENT Exam ENT Exam: Mucous Membranes Moist - Neck Exam Neck Exam: Full ROM. absent: Tenderness - Respiratory Exam Respiratory Exam: Clear to Ausculation Bilateral, NORMAL BREATHING PATTERN. absent: Decreased Breath Sounds, Rales, Rhonchi, Wheezes, Respiratory Distress - Cardiovascular Exam Cardiovascular Exam: REGULAR RHYTHM - GI/Abdominal Exam GI & Abdominal Exam: Soft, Normal Bowel Sounds. absent: Distended, Tenderness - Extremities Exam Extremities Exam: Normal Inspection. absent: Calf Tenderness, Pedal Edema, Tenderness - Neurological Exam Neurological Exam: Alert, Awake, Normal Gait, Oriented x3 - Skin Skin Exam: Dry, Intact, Normal Color, Warm Assessment and Plan - Assessment and Plan (Free Text) Assessment: 71 y/o woman w/ pmh of HTN and anemia presented w/ multiple episodes of bloody bowl movement Plan: Blood in stools - Stool occult blood positive - Hemodynamically stable: Hb: 11.4 - Type and screen: A+, antibody negative - GI consulted, Dr. Ferraro, recommendations appreciated - surgery consulted, Dr. Fountain, recommendations appreciated - CT abdomen showed: Cholelithiasis. Constipation noted, fecalized content in the small bowl. Multiple calcifications seen adjacent to right posterolateral wall of the rectus sigmoid with adjacent right sided ill defined soft tissue associated with calcification. Possibly lesion involving wall of rectosigmoid colon extending laterally cannot be excluded. Recommending Endoscopy and pelvic ultrasound - EGD: non-bleeding esophageal ulcer biopsied, gastritis, normal 3rd part of duodenum, oneida-en-Y gastrojejunostomy w/ gastrojejunal anastomosis characterized by ulceration biopsied - Monitor for acute changes - Colonoscopy today - NPO for colonoscopy Lightheadedness - resolved - possibly secondary to dehydration - lightheadedness improved after bolus of IV fluids - BUN/Creatinine : 18/1.0 Hyperkalemia -resolved - K+ 4.7 - c/w enalapril home medication - Continue to monitor HTN - controlled w/ medication - c/w enalapril 5 mg PO daily DVT prophylaxis - Hold anticoagulation, because of bleeding - SCD
--- NOTE | 2017-07-07 07:37 | CP.PCM.PN ---
Subjective - Date & Time of Evaluation Date of Evaluation: 07/07/17 Time of Evaluation: 07:35 - Subjective Subjective: General Surgery Progress Note - Dr. Fountain Patient seen and examined at bedside this morning. Denies any pain at present. Denies any new episodes of bloody stool and has not noticed any new drops of blood on her clothing or on the floor. She says she had her EGD yesterday and admits to still being NPO as she is going for colonoscopy today. Denies F/C/N/V/ CP/SOB. Objective - Vital Signs/Intake and Output Vital Signs (last 24 hours): Temp Pulse Resp BP Pulse Ox 97.7 F 60 18 105/68 96 07/07/17 00:00 07/07/17 00:00 07/07/17 00:00 07/07/17 00:00 07/07/17 00:00 - Medications Medications: Current Medications Enalapril Maleate (Vasotec) 5 mg PO DAILY [facility] Last Admin: 07/06/17 09:00 Dose: 5 mg Pantoprazole Sodium (Protonix Ec Tab) 40 mg PO DAILY [facility] Last Admin: 07/06/17 09:00 Dose: 40 mg - Labs Labs: 07/07/17 06:00 07/07/17 06:00 PT 11.0 Seconds (9.8-13.1) 07/04/17 20:15 INR 1.0 (0.9-1.2) 07/04/17 20:15 APTT 28.2 Seconds (25.6-37.1) 07/04/17 20:15 - Constitutional Appears: Well, Non-toxic, No Acute Distress - GI/Abdominal Exam GI & Abdominal Exam: Soft. absent: Tenderness - Neurological Exam Neurological Exam: Alert, Awake, Oriented x3 - Psychiatric Exam Psychiatric exam: Normal Affect, Normal Mood - Skin Skin Exam: Dry, Intact Assessment and Plan - Assessment and Plan (Free Text) Assessment: 71 y/o female with GI bleed -Monitor Hgb, transfuse as needed -trending up since admission, no transfusions given -continue IV fluids -NPO diet prior to colonoscopy today -EGD shows no stigmata of recent bleeding -f/u results of colonoscopy -Medical management as per primary team -Further recommendations as per Dr. Fountain
[2017-07-07] MEDS: Pantoprazole 40 mg EC Tab PO SCH (08:24)
[2017-07-07 08:31] VITALS: O2SAT 100
[2017-07-07] MEDS ORDERED: Lactated Ringer's 1,000 ML IV ONE (10:17)
[2017-07-07] MEDS ORDERED: Lidocaine 2% MPF (5 ml) Inj ONE (11:23)
[2017-07-07] MEDS ORDERED: Propofol 10 mg/ml Inj (20 ML) ONE (11:23)
--- NOTE | 2017-07-07 12:00 | CP.PCM.DIS ---
<Jeremias Valdes - Last Filed: 07/07/17 11:57> Provider - Provider Date of Admission: 07/05/17 10:21 Attending physician: Eduardo Clark MD Time Spent in preparation of Discharge (in minutes): 15 Diagnosis - Discharge Diagnosis (1) GI bleed Status: Resolved Hospital Course - Lab Results Lab Results: Most Recent Lab Values WBC 4.8 K/uL (4.8-10.8) 07/07/17 06:00 RBC 3.36 Mil/uL (3.80-5.20) L 07/07/17 06:00 Hgb 11.4 g/dL (12.0-16.0) L 07/07/17 06:00 Hct 33.7 % (34.0-47.0) L 07/07/17 06:00 MCV 100.4 fl (81.0-99.0) H 07/07/17 06:00 MCH 33.8 pg (27.0-31.0) H 07/07/17 06:00 MCHC 33.7 g/dL (33.0-37.0) 07/07/17 06:00 RDW 13.8 % (11.5-14.5) 07/07/17 06:00 Plt Count 190 K/uL (130-400) 07/07/17 06:00 MPV 8.7 fl (7.2-11.7) 07/07/17 06:00 Neut % (Auto) 59.0 % (50.0-75.0) 07/07/17 06:00 Lymph % (Auto) 25.3 % (20.0-40.0) 07/07/17 06:00 [place] % (Auto) 9.7 % (0.0-10.0) 07/07/17 06:00 Eos % (Auto) 5.2 % (0.0-4.0) H 07/07/17 06:00 Baso % (Auto) 0.8 % (0.0-2.0) 07/07/17 06:00 Neut # (Auto) 2.8 K/uL (1.8-7.0) 07/07/17 06:00 Lymph # (Auto) 1.2 K/uL (1.0-4.3) 07/07/17 06:00 [place] # (Auto) 0.5 K/uL (0.0-0.8) 07/07/17 06:00 Eos # (Auto) 0.2 K/uL (0.0-0.7) 07/07/17 06:00 Baso # (Auto) 0.0 K/uL (0.0-0.2) 07/07/17 06:00 PT 11.0 Seconds (9.8-13.1) 07/04/17 20:15 INR 1.0 (0.9-1.2) 07/04/17 20:15 APTT 28.2 Seconds (25.6-37.1) 07/04/17 20:15 Sodium 144 mmol/l (132-148) 07/07/17 06:00 Potassium 4.7 MMOL/L (3.6-5.0) 07/07/17 06:00 Chloride 104 mmol/L (98-107) 07/07/17 06:00 Carbon Dioxide 30 mmol/L (22-30) 07/07/17 06:00 Anion Gap 15 (10-20) 07/07/17 06:00 BUN 18 mg/dl (7-17) H 07/07/17 06:00 Creatinine 1.0 mg/dl (0.7-1.2) 07/07/17 06:00 Est GFR ( Amer) > 60 07/07/17 06:00 Est GFR (Non-Af Amer) 55 07/07/17 06:00 Random Glucose 86 mg/dL (65-105) 07/07/17 06:00 Calcium 9.3 mg/dL (8.4-10.2) 07/07/17 06:00 Total Bilirubin 0.7 mg/dl (0.2-1.3) 07/07/17 06:00 AST 36 U/L (14-36) D 07/07/17 06:00 ALT 35 U/L (9-52) 07/07/17 06:00 Alkaline Phosphatase 50 U/L (38-126) 07/07/17 06:00 Total Protein 6.2 G/DL (6.3-8.2) L 07/07/17 06:00 Albumin 3.7 g/dL (3.5-5.0) 07/07/17 06:00 Globulin 2.6 gm/dL (2.2-3.9) 07/07/17 06:00 Albumin/Globulin Ratio 1.4 (1.0-2.1) 07/07/17 06:00 Stool Occult Blood Positive (NEGATIVE) H 07/04/17 16:45 Blood Type A POSITIVE 07/04/17 20:00 Blood Type Confirm A POSITIVE 07/04/17 20:20 Antibody Screen Negative 07/04/17 20:00 BBK History Checked No verified bt 07/04/17 20:00 - Hospital Course Hospital Course: 71 y/o woman w/ pmh of HTN and anemia presented w/ multiple episodes of bloody bowl movement. The patient was seen in ED, had VS WNL, CBC showing anemia, CMP showed hyperkalemia, FOBT positive. Patient had EGD 07/06/2017 which was WNL and colonoscopy 07/07/2017 which was also WNL. The patient denies further complaints of any bleeding. The patient denies headache, dizziness, chest pain , SOB, abdominal pain, nausea, vomiting, diarrhea, dysuria, or fever. The patient has been seen, examined, and deemed medically fit for discharge home. Patient is to follow up w/ Dr. Clark and GI Dr. Ferraro in 2 weeks. Discharge Exam - Head Exam Head Exam: ATRAUMATIC, NORMAL INSPECTION, NORMOCEPHALIC - Eye Exam Eye Exam: Normal appearance - ENT Exam ENT Exam: Mucous Membranes Moist - Respiratory Exam Respiratory Exam: Clear to PA & Lateral, NORMAL BREATHING PATTERN. absent: Decreased Breath Sounds, Rales, Rhonchi, Wheezes, Respiratory Distress, Stridor - Cardiovascular Exam Cardiovascular Exam: REGULAR RHYTHM. absent: Tachycardia - GI/Abdominal Exam GI & Abdominal Exam: Normal Bowel Sounds, Soft. absent: Distended, Tenderness - Extremities Exam Extremities exam: normal inspection - Neurological Exam Neurological exam: Alert, Normal Gait, Oriented x3 - Skin Skin Exam: Dry, Intact, Normal Color, Warm Discharge Plan - Follow Up Plan Condition: FAIR Disposition: HOME/ ROUTINE Instructions: Gastrointestinal Bleeding (DC), Colonoscopy (DC) Additional Instructions: follow up with PMD and GI MD 7-10 days. Referrals: Jasmine RODRIGUEZ,MD Darren [Medical Doctor] - Melvin Fountain MD [Staff Provider] - Eduardo Clark MD [Staff Provider] - <WillisRoney Mundo - Last Filed: 07/09/17 06:50> Provider - Provider Date of Admission: 07/05/17 10:21 Attending physician: Eduardo Clark MD Hospital Course - Lab Results Lab Results: Most Recent Lab Values WBC 4.8 K/uL (4.8-10.8) 07/07/17 06:00 RBC 3.36 Mil/uL (3.80-5.20) L 07/07/17 06:00 Hgb 11.4 g/dL (12.0-16.0) L 07/07/17 06:00 Hct 33.7 % (34.0-47.0) L 07/07/17 06:00 MCV 100.4 fl (81.0-99.0) H 07/07/17 06:00 MCH 33.8 pg (27.0-31.0) H 07/07/17 06:00 MCHC 33.7 g/dL (33.0-37.0) 07/07/17 06:00 RDW 13.8 % (11.5-14.5) 07/07/17 06:00 Plt Count 190 K/uL (130-400) 07/07/17 06:00 MPV 8.7 fl (7.2-11.7) 07/07/17 06:00 Neut % (Auto) 59.0 % (50.0-75.0) 07/07/17 06:00 Lymph % (Auto) 25.3 % (20.0-40.0) 07/07/17 06:00 [place] % (Auto) 9.7 % (0.0-10.0) 07/07/17 06:00 Eos % (Auto) 5.2 % (0.0-4.0) H 07/07/17 06:00 Baso % (Auto) 0.8 % (0.0-2.0) 07/07/17 06:00 Neut # (Auto) 2.8 K/uL (1.8-7.0) 07/07/17 06:00 Lymph # (Auto) 1.2 K/uL (1.0-4.3) 07/07/17 06:00 [place] # (Auto) 0.5 K/uL (0.0-0.8) 07/07/17 06:00 Eos # (Auto) 0.2 K/uL (0.0-0.7) 07/07/17 06:00 Baso # (Auto) 0.0 K/uL (0.0-0.2) 07/07/17 06:00 PT 11.0 Seconds (9.8-13.1) 07/04/17 20:15 INR 1.0 (0.9-1.2) 07/04/17 20:15 APTT 28.2 Seconds (25.6-37.1) 07/04/17 20:15 Sodium 144 mmol/l (132-148) 07/07/17 06:00 Potassium 4.7 MMOL/L (3.6-5.0) 07/07/17 06:00 Chloride 104 mmol/L (98-107) 07/07/17 06:00 Carbon Dioxide 30 mmol/L (22-30) 07/07/17 06:00 Anion Gap 15 (10-20) 07/07/17 06:00 BUN 18 mg/dl (7-17) H 07/07/17 06:00 Creatinine 1.0 mg/dl (0.7-1.2) 07/07/17 06:00 Est GFR ( Amer) > 60 07/07/17 06:00 Est GFR (Non-Af Amer) 55 07/07/17 06:00 Random Glucose 86 mg/dL (65-105) 07/07/17 06:00 Calcium 9.3 mg/dL (8.4-10.2) 07/07/17 06:00 Total Bilirubin 0.7 mg/dl (0.2-1.3) 07/07/17 06:00 AST 36 U/L (14-36) D 07/07/17 06:00 ALT 35 U/L (9-52) 07/07/17 06:00 Alkaline Phosphatase 50 U/L (38-126) 07/07/17 06:00 Total Protein 6.2 G/DL (6.3-8.2) L 07/07/17 06:00 Albumin 3.7 g/dL (3.5-5.0) 07/07/17 06:00 Globulin 2.6 gm/dL (2.2-3.9) 07/07/17 06:00 Albumin/Globulin Ratio 1.4 (1.0-2.1) 07/07/17 06:00 Stool Occult Blood Positive (NEGATIVE) H 07/04/17 16:45 Blood Type A POSITIVE 07/04/17 20:00 Blood Type Confirm A POSITIVE 07/04/17 20:20 Antibody Screen Negative 07/04/17 20:00 BBK History Checked No verified bt 07/04/17 20:00 Attending/Attestation - Attestation I have personally seen and examined this patient.: Yes I have fully participated in the care of the patient.: Yes I have reviewed all pertinent clinical information, including history, physical exam and plan: Yes
[2017-07-07 12:02] VITALS: RESP 17
[2017-07-07 12:46] VITALS: BP 146/81; PULSE 61; TEMP 97.8
== END 2017-07-07 14:14 | disposition home or self-care (01) | DRG 378 ==
LOC: H.ER 11:21 → H.ERHOLD 14:53 → OBSVTOIN 07-05 10:21 → H.MEDSURG1 07-05 12:36
PROVIDERS: ADMIT Family Medicine; ATTEND Family Medicine
PROC: 3E0234Z Introduction of Serum, Toxoid and Vaccine into Muscle, Percutaneous Approach (ICD-10-PCS; 2017-07-06)
PROC: 0DB48ZX Excision of Esophagogastric Junction, Via Natural or Artificial Opening Endoscopic, Diagnostic (ICD-10-PCS; principal; 2017-07-06 07:30)
PROC: 0DBE8ZX Excision of Large Intestine, Via Natural or Artificial Opening Endoscopic, Diagnostic (ICD-10-PCS; 2017-07-07)
DX: K92.2 Gastrointestinal hemorrhage, unspecified (principal); K22.10 Ulcer of esophagus without bleeding; E87.5 Hyperkalemia; D64.9 Anemia, unspecified; K59.00 Constipation, unspecified; E73.9 Lactose intolerance, unspecified; E86.0 Dehydration; I10 Essential (primary) hypertension; Z98.84 Bariatric surgery status; Z96.641 Presence of right artificial hip joint; Z96.653 Presence of artificial knee joint, bilateral; Z23 Encounter for immunization; Z91.041 Radiographic dye allergy status; K29.70 Gastritis, unspecified, without bleeding; K64.8 Other hemorrhoids